=== PATIENT | male | born 1985 | race Caucasian/White ===

== ENCOUNTER 2017-07-12 19:10 | Emergency (ER) | payer SELFPAY ==
[~2017-07-12 19:10] MED LIST: ISOVUE-370 76%-LOCM 1 ML ONE
[2017-07-12 19:39] LABS: Bilirubin Negative (Negative); Blood, Urine Negative (Negative); Glucose, Urine (Dipstick) Negative (Negative); Ketone, Urine Negative (Negative); Nitrite Negative (Negative); Protein, Urine (Dipstick) Negative (Neg-Trace); Urobilinogen 0.2 mg/dL (0.2-1.0)
[2017-07-12] MEDS ORDERED: Ondansetron HCl/PF 4 MG/2 ML Vial ONE (19:43)
[2017-07-12 19:48] LABS: #Basophils 0.1 thou/uL (0.0-0.2); #Eosinphils 0.3 thou/uL (0.0-0.7); #Lymphocytes 3.9 thou/uL (1.20-3.40); #Monocytes 1.3 thou/uL (0.11-0.59); #Neutrophils 6.3 thou/uL (1.40-6.50); %Basophils 1.2 % (0.0-1.0); %Eosinophils 2.7 % (0.0-10.0); %Lymphocytes 32.7 % (21.0-51.0); %Monocytes 10.7 % (0.0-10.0); Hematocrit 41.7 % (42.0-52.0); Mean Platelet Volume 7.3 fL (7.4-10.4); Red Blood Cell (RBC) Count 4.27 mill/uL (4.70-6.10); White Blood Cell (WBC) Count 11.9 thou/uL (4.8-10.8)
[2017-07-12] MEDS ORDERED: Morphine 4 MG/ML Carpuject ONE (19:52)
[2017-07-12 20:12] LABS: ALT (SGPT) 16 U/L (8-55); AST (SGOT) 16 U/L (5-34); Alkaline Phosphatase 55 U/L (40-150); Anion Gap 16 mmol/L (10-20); BUN (Urea Nitrogen) 21 mg/dL (8.9-20.6); Bilirubin, Total 0.3 mg/dL (0.2-1.2); Calc. Creatinine Clearance 0 mL/min (70-130); Calcium 10.6 mg/dL (7.8-10.44); Carbon Dioxide 21 mmol/L (22-29); Chloride 108 mmol/L (98-107); Estimated GFR-MDRD 80; Globulin 2.8 g/dL (2.4-3.5); Protein, Total 7.1 g/dL (6.0-8.3)
--- NOTE | 2017-07-12 21:23 | CT ---
CONTRAST ENHANCED ABDOMEN AND PELVIC CT: 07/12/17 COMPARISON: 04/28/13 INDICATION: Right lower quadrant pain. FINDINGS: No consolidation at the imaged lung bases. The bowel is incompletely assessed without enteric contra st. There is a fat containing periumbilical hernia. No acute abnormality of the solid abdominal orga ns. The abdominal aorta is normal in caliber. Moderate distention of the unopacified urinary bladder . Osseous structure are intact. No free air or ascites. IMPRESSION: 1. Limited evaluation of the bowel without enteric contrast. 2. No free air, significant ascites, or other definitive acute process otherwise identified. POS: [facility]
[2017-07-12 21:40] LABS: Lactate 0.52 mmol/L (0.50-2.20)
== END 2017-07-12 22:37 | disposition home or self-care (01) ==
LOC: ERS 19:10
DX: R10.31 Right lower quadrant pain (principal); F43.10 Post-traumatic stress disorder, unspecified; F31.9 Bipolar disorder, unspecified; F20.9 Schizophrenia, unspecified; F17.210 Nicotine dependence, cigarettes, uncomplicated; I10 Essential (primary) hypertension; Z79.899 Other long term (current) drug therapy
CPT/HCPCS: 36415; 74177; 80053; 81003; 83605; 85025; 96374; 96375; J1170; J2270; J2405

== ENCOUNTER 2018-07-17 05:58 | Emergency (ER) | payer SELFPAY ==
[2018-07-17] MEDS ORDERED: Ziprasidone 20 MG VIAL ONE (08:00)
[2018-07-17] MEDS ORDERED: Water For Injection,Sterile 20 ML ONE (08:00)
[2018-07-17] MEDS ORDERED: diphenhydrAMINE 25 MG CAP PO SCH ×2 (12:45→21:00)
[2018-07-17] MEDS ORDERED: diphenhydrAMINE 25 MG CAP ONE (21:34)
[2018-07-18] MEDS ORDERED: FLUoxetine HCl 20 MG CAP PO SCH (09:00)
[2018-07-18] MEDS ORDERED: hydrOXYzine 25 MG TAB ONE ×2 (15:05)
== END 2018-07-17 20:56 | disposition home or self-care (01) ==
LOC: ERS 05:58
DX: F29 Unspecified psychosis not due to a substance or known physiological condition (principal); F63.81 Intermittent explosive disorder; F20.9 Schizophrenia, unspecified; F15.10 Other stimulant abuse, uncomplicated; F12.10 Cannabis abuse, uncomplicated; I10 Essential (primary) hypertension; F43.10 Post-traumatic stress disorder, unspecified; F31.9 Bipolar disorder, unspecified; F41.9 Anxiety disorder, unspecified; Z79.899 Other long term (current) drug therapy
CPT/HCPCS: 96360; 96372; J3486

== ENCOUNTER 2022-11-20 16:18 | Outpatient (CLI) | payer OTHER ==
[2022-11-20 17:28] LABS: #Basophils 0.1 10x3/uL (0.0-0.2); #Eosinphils 0.3 10x3/uL (0.0-0.5); #Neutrophils 6.4 10x3/uL (1.5-8.4); %Basophils 0.5 % (0.0-2.0); %Eosinophils 2.4 % (0.0-6.0); %Lymphocytes 29.5 % (18.0-47.0); %Monocytes 9.3 % (0.0-10.0); Hemoglobin 14.3 g/dL (13.5-17.5); Mean Corpuscular Hemoglobin 32.4 pg (27.0-33.0); Mean Corpuscular Volume 95.2 fl (81.2-95.1); Mean Platelet Volume 9.7 fl (7.4-10.4); Platelet Count 324 10x3/uL (150-450); RBC Distribution Width 12.5 % (11.5-14.5); Red Blood Cell (RBC) Count 4.41 10x6/uL (4.32-5.72)
== END 2022-11-20 16:19 | disposition home or self-care (01) ==
LOC: LABBT 16:18
PROVIDERS: ATTEND Surgery
DX: Z01.812 Encounter for preprocedural laboratory examination (principal); K42.9 Umbilical hernia without obstruction or gangrene
CPT/HCPCS: 85025

== ENCOUNTER 2022-11-23 10:11 | Day surgery (SDC) | payer OTHER ==
[2022-11-21 13:21] VITALS: BMI 28.0
[2022-11-23] MEDS ORDERED: Midazolam HCl 2 mg/2 ml Vial ONE ×2 (11:10→11:13)
[2022-11-23] MEDS ORDERED: fentaNYL PF 100 MCG/2 ML SYRINGE ONE ×3 (11:11→12:41)
[2022-11-23] MEDS ORDERED: SUGAMMADEX SODIUM 200 MG/2 ML VIAL ONE (11:11)
[2022-11-23] MEDS ORDERED: Bupivacaine HCl 0.5%/Epinephrine 1:200,000/PF 30 ml Vial ONE (11:19)
[2022-11-23] MEDS ORDERED: Sodium Chloride 0.9% 100 ML ONE (11:28)
[2022-11-23] MEDS ORDERED: CEFAZOLIN 2 GM VIAL ONE (11:28)
[2022-11-23] MEDS ORDERED: HYDROmorphone 0.5 MG/0.5 ML SYRINGE ONE (12:30)
[2022-11-23] MEDS ORDERED: FENTANYL 50 MCG/ML 1 ML VIAL ONE (13:09)
[2022-11-23] MEDS ORDERED: HYDROcodone/Acetaminophen 5/325 mg Tablet ONE (13:26)
== END 2022-11-23 14:30 | disposition home or self-care (01) ==
LOC: SDC 10:11
PROVIDERS: ATTEND Surgery
PROC: 0WUF0JZ Supplement Abdominal Wall with Synthetic Substitute, Open Approach (ICD-10-PCS; principal; 2022-11-23)
DX: K42.9 Umbilical hernia without obstruction or gangrene (principal); F17.200 Nicotine dependence, unspecified, uncomplicated; Z79.899 Other long term (current) drug therapy
CPT/HCPCS: C1889; J1170; J2250; J3010; J3490